=== PATIENT | male | born 1970 | race Caucasian/White ===

== ENCOUNTER 2023-03-14 05:10 | Day surgery (SDC) | payer OTHER ==
[2023-03-13 08:16] VITALS: BMI 27.4
[2023-03-14 11:45] VITALS: TEMP 97.5
[2023-03-14 12:22] VITALS: BP 125/87; PULSE 60; RESP 18
== END 2023-03-14 12:40 | disposition home or self-care (01) ==
LOC: JASU-ENDO 05:10
PROVIDERS: ATTEND Student in an Organized Health Care Education/Training Program
PROC: 0DBP8ZX Excision of Rectum, Via Natural or Artificial Opening Endoscopic, Diagnostic (ICD-10-PCS; principal; 2023-03-14 10:00)
DX: Z12.11 Encounter for screening for malignant neoplasm of colon (principal); Z80.0 Family history of malignant neoplasm of digestive organs; K62.1 Rectal polyp
CPT/HCPCS: 88305-TC

== ENCOUNTER 2023-11-11 17:58 | Emergency (ER) | payer OTHER ==
[2023-11-11 18:13] VITALS: RESP 18; BMI 29.1
[2023-11-11] MEDS ORDERED: diazePAM 5 MG TABLET PO ONE (18:27)
[2023-11-11] MEDS ORDERED: diazePAM 5 MG TABLET ONE (18:29)
[2023-11-11 18:49] LABS: BASO % 0.6 % (0-2.0); EOS % 1.7 % (0-4.5); HEMATOCRIT 44.8 % (35.4-49); LYMPH % 22.3 % (8-40); MCH 29.2 pg (25.7-33.7); MCHC 33.5 g/dl (32.0-35.9); MEAN CELL VOLUME 87.4 fl (80-96); MEAN PLT VOLUME 10.9 fl (7.5-11.1); NEUT % 65.4 % (42.8-82.8); PLATELET COUNT 99 10^3/uL (134-434); RBC 5.13 M/mm3 (4.00-5.60); RDW 12.8 % (11.9-15.9); WHITE BLOOD COUNT 5.9 K/mm3 (4.0-10.0)
[2023-11-11 19:07] LABS: CALCIUM 9.2 mg/dL (8.5-10.1)
[2023-11-11 19:08] LABS: ALBUMIN 3.7 g/dl (3.4-5.0); BLOOD UREA NITROGEN 16.7 mg/dL (7-18)
[2023-11-11 19:13] LABS: BILIRUBIN,TOTAL 0.5 mg/dL (0.2-1)
[2023-11-11] MEDS ORDERED: diazePAM 2 MG TABLET PO ONE (20:29)
[2023-11-11] MEDS ORDERED: diazePAM 2 MG TABLET ONE (20:53)
[2023-11-11 22:39] VITALS: BP 124/78; PULSE 67; TEMP 98.3
== END 2023-11-11 22:41 | disposition home or self-care (01) ==
LOC: JER 17:58
DX: R00.2 Palpitations (principal); R20.2 Paresthesia of skin
CPT/HCPCS: 36415; 71045-TC-FY; 80053; 84484; 85025; 93005; 93010; 99285-25

== ENCOUNTER 2025-01-08 08:46 | Observation (INO) | payer OTHER ==
[2025-01-08] MEDS ORDERED: ACETAMINOPHEN INJECTION 100 ML ONE (10:23)
[2025-01-08] MEDS: ACETAMINOPHEN 1000 MG/100 ML BAG IVPB ONE (10:28)
[2025-01-08] MEDS: SODIUM CHLORIDE 1,000 ML IV STA (10:28)
[2025-01-08 10:31] LABS: HEMATOCRIT 43.1 % (35.4-49); HEMOGLOBIN 14.1 GM/dL (11.7-16.9); MCH 28.4 pg (25.7-33.7); MCHC 32.8 g/dl (32.0-35.9); MEAN CELL VOLUME 86.6 fl (80-96); MEAN PLT VOLUME 10.3 fl (7.5-11.1); PLATELET COUNT 81 10^3/uL (134-434); RBC 4.98 M/mm3 (4.00-5.60); RDW 12.8 % (11.9-15.9); WHITE BLOOD COUNT 2.8 K/mm3 (4.0-10.0)
[2025-01-08 10:33] LABS: EPI CELLS 19 /uL (0-25.1); HYALINE CASTS 1 /uL (0-3.1); PH,URINE 6.5 (5.0-8.0); URINE APPEARANCE CLEAR; URINE BACTERIA 2057 /uL (0-1359); URINE BILIRUBIN NEGATIVE (NEGATIVE); URINE COLOR YELLOW; URINE GLUCOSE (UA) NEGATIVE (NEGATIVE); URINE KETONE NEGATIVE (NEGATIVE); URINE LEUK ESTERASE 1+ (NEGATIVE); URINE NITRITE POSITIVE (NEGATIVE); URINE PROTEIN 1+ (NEGATIVE); URINE RBC 12 /uL (0-23.9); URINE WBC 92 /uL (0-25.8)
[2025-01-08 11:02] LABS: ALBUMIN 3.2 g/dl (3.4-5.0); CALCIUM 8.7 mg/dL (8.5-10.1)
[2025-01-08 11:03] LABS: BLOOD UREA NITROGEN 15.7 mg/dL (7-18); MAGNESIUM 2.1 mg/dL (1.8-2.4)
[2025-01-08 11:06] LABS: CREATININE 0.9 mg/dL (0.55-1.3)
[2025-01-08 11:07] LABS: BILIRUBIN,TOTAL 0.9 mg/dL (0.2-1); TOT PROT 6.6 g/dl (6.4-8.2)
[2025-01-08] MEDS ORDERED: CEFTRIAXONE 1 G/50 ML PREMIX 50 ML IVPB ONE (11:16)
[2025-01-08] MEDS: CEFTRIAXONE 1,000 MG in DEXTROSE 5%-WATER - 50 ML IVPB ONE (11:24)
[2025-01-08 12:06] LABS: ANISOCYTOSIS 0; MACROCYTOSIS 0
[2025-01-08] MEDS ORDERED: ACETAMINOPHEN 325 MG TABLET (FP) PO PRN (13:03)
[2025-01-08 13:52] VITALS: RESP 18; BMI 28.6
[2025-01-08] MEDS: SODIUM CHLORIDE 1,000 ML IV SCH (14:11)
[2025-01-09 09:19] LABS: BASO % 0.7 % (0-2.0); EOS % 4.7 % (0-4.5); HEMATOCRIT 41.3 % (35.4-49); HEMOGLOBIN 14.3 GM/dL (11.7-16.9); LYMPH % 27.5 % (8-40); MCH 29.6 pg (25.7-33.7); MCHC 34.7 g/dl (32.0-35.9); MEAN CELL VOLUME 85.4 fl (80-96); MEAN PLT VOLUME 10.2 fl (7.5-11.1); MONO % 12.2 % (3.8-10.2); NEUT % 54.9 % (42.8-82.8); PLATELET COUNT 89 10^3/uL (134-434); RBC 4.83 M/mm3 (4.00-5.60); WHITE BLOOD COUNT 4.1 K/mm3 (4.0-10.0)
[2025-01-09 09:43] LABS: POTASSIUM 4.2 mmol/L (3.5-5.1)
[2025-01-09 09:45] LABS: BLOOD UREA NITROGEN 11.7 mg/dL (7-18); CALCIUM 9.1 mg/dL (8.5-10.1)
[2025-01-09 10:58] VITALS: BP 110/73; PULSE 72; TEMP 98
== END 2025-01-09 13:02 | disposition home or self-care (01) ==
LOC: JER 08:46 → INTOOBSV 11:38 → UNDOADMOB 11:38 → JERBED 11:38 → J6S 13:19
PROVIDERS: ADMIT Family Medicine; ATTEND Family Medicine
PROC: 3E03329 Introduction of Other Anti-infective into Peripheral Vein, Percutaneous Approach (ICD-10-PCS; principal; 2025-01-08)
PROC: 3E033NZ Introduction of Analgesics, Hypnotics, Sedatives into Peripheral Vein, Percutaneous Approach (ICD-10-PCS; 2025-01-08)
DX: N41.0 Acute prostatitis (principal); Z87.738 Personal history of other specified (corrected) congenital malformations of digestive system
CPT/HCPCS: 0241U-QW; 36415; 71046-TC-FY; 71260-TC; 80048; 80053; 81003; 82550; 83605; 83735; 85025; 87040; 87086; 87186; 96361; 96365; 96366; 96367; 96375; 99285-25; G0378; J0131; Q9967